=== PATIENT | female | born 1985 | race Caucasian/White ===

== ENCOUNTER 2017-05-16 03:48 | Inpatient (IN) | payer MEDICAID ==
[~2017-05-16] VITALS: Ht 154.9 cm; Wt 87.1 kg
[2017-05-16] MEDS ORDERED: LACTATED RINGERS 1,000 ML IV SCH (04:04)
[2017-05-16] MEDS ORDERED: RHO(D) IMMUNE GLOBULIN 300 MCG/SYR IM SCH (04:15)
[2017-05-16] MEDS ORDERED: METHYLERGONOVINE MALEATE 0.2 MG/ML IM PRN ×2 (04:15→07:30)
[2017-05-16] MEDS ORDERED: TERBUTALINE SULFATE 1MG/ML VIAL SUBCUT SCH (04:15)
[2017-05-16] MEDS ORDERED: BUTORPHANOL TARTRATE 2 MG/ML VIAL IV PRN (04:15)
[2017-05-16] MEDS ORDERED: NALOXONE HCL 0.4 MG/ML 1ML VIAL IM PRN (04:15)
[2017-05-16] MEDS ORDERED: PENICILLIN G POTASSIUM 5 MMU in DEXT 5% WATER 100 ML IV SCH (05:00)
[2017-05-16] MEDS ORDERED: FENTANYL CITRATE/PF 50MCG/ML 2ML VIAL ONE (05:02)
[2017-05-16] MEDS ORDERED: MORPHINE SULFATE/PF 1MG/ML 10ML AMP ONE (05:02)
[2017-05-16] MEDS ORDERED: EPHEDRINE SULFATE 50MG/ML VIAL ONE (05:02)
[2017-05-16] MEDS ORDERED: ONDANSETRON HCL 4MG/2ML VIAL ONE (05:03)
[2017-05-16] MEDS ORDERED: SODIUM CHLORIDE 0.9% 10ML VIAL ONE (05:03)
[2017-05-16] MEDS ORDERED: GLYCOPYRROLATE 0.2 MG/ML 2ML VIAL ONE (05:03)
[2017-05-16] MEDS ORDERED: OXYTOCIN 10 UNITS/ML 1ML ONE (05:04)
[2017-05-16] MEDS ORDERED: DEXT 5%/LR + PITOCIN 20UNITS/L 1,000 ML IV ONE (05:43)
[2017-05-16 06:21] LABS: BASOPHILS % 0.3 % (0.0-2.0); EOSINOPHILS % 0.1 % (0.0-5.0); HEMATOCRIT. 36.3 % (36.0-48.0); HEMOGLOBIN. 11.8 g/dL (12.0-16.0); LYMPHOCYTES % 14.5 % (20.0-50.0); MEAN CORPUSCULAR HEMOGLOBIN 25.7 pg (28.0-32.0); MEAN CORPUSCULAR VOLUME 79.2 fL (81.0-99.0); MEAN PLATELET VOLUME 10.7 fl (7.4-10.4); MONOCYTES % 7.1 % (2.0-8.0); PLATELET 230 x1000/uL (130-400); RED BLOOD CELL COUNT 4.59 mill/uL (4.2-5.4); RED CELL DISTRIBUTION WIDTH 16.4 % (11.6-14.6)
[2017-05-16 06:38] LABS: PARTIAL THROMBOPLASTIN TIME 24.6 sec (23.4-31.0); PROTHROMBIN TIME 10.4 sec (9.4-11.6)
[2017-05-16 07:02] LABS: HEPATITIS B SURFACE ANTIGEN NEGATIVE; RUBELLA IGG 4.2 IU/mL (4.99-10)
[2017-05-16] MEDS ORDERED: DEXT 5%/LR + PITOCIN 20UNITS/L 1,000 ML IV SCH (07:18)
[2017-05-16] MEDS ORDERED: LANOLIN OINT 0.25 GM TUBE TOP PRN (07:30)
[2017-05-16] MEDS ORDERED: IBUPROFEN 400MG TABLET PO PRN (07:30)
[2017-05-16] MEDS ORDERED: RHO(D) IMMUNE GLOBULIN 300 MCG/SYR IM PRN (07:30)
[2017-05-16 07:57] LABS: CLARITY URINE CLEAR (CLEAR); COLOR URINE YELLOW (YELLOW); GLUCOSE URINE NEGATIVE (NEGATIVE); KETONES URINE 3+ (NEGATIVE); LEUKOCYTE ESTERASE URINE NEGATIVE (NEGATIVE); NITRITE URINE NEGATIVE (NEGATIVE); OCCULT BLOOD URINE 2+ (NEGATIVE); PH URINE 5.5 (4.5-8.0); PROTEIN URINE 1+ (NEGATIVE); SPECIFIC GRAVITY URINE 1.029 (1.005-1.030); UROBILINOGEN URINE 0.2 E.U./dL (0.2-1.0)
[2017-05-16 08:30] VITALS: BP 114/73
[2017-05-16 11:03] LABS: *AMPHETAMINES SCREEN URINE NEGATIVE (NEGATIVE); *BARBITURATES SCREEN URINE NEGATIVE (NEGATIVE); *BENZODIAZEPINES SCREEN URINE NEGATIVE (NEGATIVE); *COCAINE SCREEN URINE NEGATIVE (NEGATIVE); CANNABINOID URINE SCREEN NEGATIVE (NEGATIVE); METHADONE URINE SCREEN NEGATIVE (NEGATIVE); OPIATES URINE SCREEN NEGATIVE (NEGATIVE); PHENCYCLIDINE URINE SCREEN NEGATIVE (NEGATIVE)
[2017-05-16] MEDS: IBUPROFEN 800MG TABLET PO PRN ×2 (12:43→22:38)
[2017-05-16 15:50] VITALS: BP 114/68
[2017-05-16 23:40] VITALS: BP 109/67
[2017-05-17 07:16] LABS: BASOPHILS % 0.4 % (0.0-2.0); EOSINOPHILS % 2.1 % (0.0-5.0); HEMATOCRIT. 32.4 % (36.0-48.0); HEMOGLOBIN. 10.7 g/dL (12.0-16.0); LYMPHOCYTES % 25.6 % (20.0-50.0); MEAN CORPUSCULAR HEMOGLOBIN 26.4 pg (28.0-32.0); MEAN CORPUSCULAR VOLUME 79.9 fL (81.0-99.0); MONOCYTES % 7.7 % (2.0-8.0); NEUTROPHILS % 64.2 % (40.0-76.0); PLATELET 187 x1000/uL (130-400); RED BLOOD CELL COUNT 4.06 mill/uL (4.2-5.4); RED CELL DISTRIBUTION WIDTH 16.5 % (11.6-14.6)
[2017-05-17 08:00] VITALS: BP 119/82
[2017-05-17] MEDS: IBUPROFEN 800MG TABLET PO PRN ×2 (08:38→17:42)
[2017-05-17] MEDS: PRENATAL VIT/FE FUMARATE/FA TABLET PO SCH ×2 (08:38→09:00)
[2017-05-17 15:42] VITALS: BP 96/69
[2017-05-17 20:00] VITALS: BP 120/88
[2017-05-18] VITALS: BP 125/85
[2017-05-18 07:52] VITALS: BP 113/79
[2017-05-18] MEDS: PRENATAL VIT/FE FUMARATE/FA TABLET PO SCH (08:55)
[2017-05-18] MEDS: IBUPROFEN 800MG TABLET PO PRN (08:55)
[2017-05-18] MEDS ORDERED: TETANUS, DIPHTHERIA, PERTUSSIS VAC/PF 0.5ML (>7YR OLD) IM ONE (09:00)
== END 2017-05-18 15:25 | disposition home or self-care (01) | DRG 560 ==
LOC: L&D 03:48 → OBSVTOIN 03:48 → 7EST PP/OB 08:48
PROVIDERS: ADMIT Obstetrics & Gynecology; ATTEND Obstetrics & Gynecology
PROC: 10E0XZZ Delivery of Products of Conception, External Approach (ICD-10-PCS; principal; 2017-05-16 05:31)
DX: O32.1XX0 Maternal care for breech presentation, not applicable or unspecified (principal); D62 Acute posthemorrhagic anemia; Z37.0 Single live birth; O90.81 Anemia of the puerperium; Z3A.37 37 weeks gestation of pregnancy; O42.92 Full-term premature rupture of membranes, unspecified as to length of time between rupture and onset of labor; O77.0 Labor and delivery complicated by meconium in amniotic fluid
CPT/HCPCS: 36415; 76805; 76818; 80305; 81001; 85025; 85610; 85730; 86592; 86703; 86762; 86850; 86900; 87340; 90715; 99281; A4216; J0171; J2274; J2405; J2540; J2590; J3010; J3105; J3490; J7060; J7120; A4315